=== PATIENT | female | born 1960 | race Caucasian/White ===

== ENCOUNTER 2025-01-26 15:48 | Outpatient (AMB) | payer OTHER, SELFPAY ==
--- NOTE | 2025-01-26 16:06 | HO.NEPHOV_ITS ---
Vital Signs 01/26/25 16:10 Height 5 ft 2 in Weight 179 lb BMI 32.7 BP 110/70 Blood Pressure Location Lt brachial Position Sitting Pulse 61 Pulse Source Pulse Oximeter Pulse Oximetry (%) 99 Oxygen Delivery Method Room Air Intake Visit Reasons: ENP: HTN Drapery Estimator Required: No Accompanied by: Self / Same As Patient Allergies No Known Allergies Allergy (Verified 01/26/25 16:10) HPI Comments Details: I had the privilege of seeing Analia in consultation for labile blood pressure. She has hypertension for close to 15 years. She always had been on lisinopril/HCTZ dose of which was increased to 20/12.5 mg daily when her BP started going up. Later she needed addition of Amlodipine 2.5 mg (since 2 months) which is currently keeping her BP at goal. She does not takes excess sodium in diet and has not had any significant weight gain recently. She has no H/O uncontrolled thyroid disorders, hypokalemia, VIDAL, CAD,CVA,CHF,KHUSHBOO, carotid stenosis or PAD. Her renal functions are normal. She had Doppler of renal arteries and is due to have 24 hour ABPM. She has strong family H/O hypertension. [facility] Medical History (Updated 01/26/25 @ 20:50 by Kb Duran MD) HLD (hyperlipidemia) Hypertension Surgical History History of spinal surgery Family History (Updated 01/26/25 @ 16:08 by Dee Gongora MA) Mother Breast cancer Diabetes mellitus Hypertension Heart valve replaced Father Diabetes mellitus Hypertension Social History (Updated 01/26/25 @ 16:09 by Dee Gongora MA) Alcohol intake: current Alcohol intake frequency: holidays/special occasions only Patient Tobacco Use Status: Never used Tobacco Review of Systems Const All systems reviewed & are unremarkable except as noted in HPI and below Physical Exam Vital Signs: Last Vital Signs Pulse 61 01/26/25 16:10 BP 110/70 01/26/25 16:10 Pulse Ox 99 01/26/25 16:10 Oxygen Delivery Method Room Air 01/26/25 16:10 BMI result Body Mass Index 32.7 Const General: comfortable and no acute distress Orientation/consciousness: patient oriented x3 HEENT Head: Yes normocephalic Mouth: Normal oral and palatal mucosa present Eyes EOM: EOMs intact bilaterally Neck Neck: Yes supple Resp Auscultation: clear to auscultation bilaterally Cardio Jugular venous distension: no JVD Rate: regular rate Heart sounds: Murmur heart sound present GI Palpation (GI): Soft to palpation Auscultation: normal bowel sounds General: Yes no CVA tenderness Back/Spine/Pelvis Back: no CVA tenderness Skin General skin exam: no rashes or lesions noted Neuro General: patient oriented x3 and moves all extremities Extrem General: Yes no pedal edema Assessment & Plan Assessment & Plan (1) Hypertension: Code(s): I10 - Essential (primary) hypertension Category: Medical Qualifiers: Hypertension type: primary hypertension Qualified Code(s): I10 - Essential (primary) hypertension Plan H/O primary hypertension currently needing more medications and doses Renal functions, serum potassium, thyroid functions normal; No VIDAL Will benefit from low sodium diet and significant weight loss C/W current dose of lisinopril/HCTZ and Amlodipine Had Doppler of renal arteries and going to have 24 hour ABPM Maintain good hydration and mimimize NSAID's ( has strong family H/O HTN); NO H/O LVH/retinopathy/proteinuria All these have been discussed; Answered all questions & F/U given Coding Level of Care Code New Pt Level 4 (95552) Diagnoses Primary hypertension I10 Hypertension type: primary hypertension
[2025-01-26 16:10] VITALS: BP 110/70; PULSE 61; O2SAT 99; BMI 32.7
--- OUTSIDE RECORDS SUMMARY | 2025-01-26 20:41 | XMS_ITS | Data Portability ---
Author Organization [facility] - [facility], Allergy Address [address] [address] Care Team Providers Care Airborne Electronics Analyst Name Role Phone ISAAK LEMONS Primary Care Provider ISAAK LEMONS Referring Provider Assessment Encounter Date Assessment Date Assessment LastModified by Organization Details LastModified Time 10/12/2024 10/12/2024 Patient with episodic positionally induced vertigo. Wolverine-Hallpike was positive for vertigo and rotary nystagmus with the head to the right. We discussed that the patient s pattern of symptoms and physical exam findings are most consistent with benign paroxysmal positional vertigo (BPPV). The pathophysiology of BPPV was discussed in detail. Patient was provided with a referral to [facility] for Joe maneuvers and vestibular therapy.We discussed the fact that treatment of BPPV can require anywhere from 1 to 6 treatments for successful results, and has approximately 95% success rate in eliminating symptoms. BPPV can recur and if the classic positionally induced symptoms do recur, patient can call for further referrals. [email or web address] Not available 10/12/2024 10:22:07 Plan of Treatment Reminders Order Date Submit Date Provider Last Modified By Organization Details Last Modified Time Details Appointments None recorded. Lab None recorded. [facility]erral vest[facility] [address], [place], [address], 16:02:23 Procedures None recorded. Surgeries None recorded. Imaging None recorded. Medication Orders None recorded. Patient TargetsNo targets recorded. Patient InstructionsNo instructions recorded. Reason for Referral Vestibular Therapy Referral for Benign paroxysmal positional vertigo Referring Physician: Brynn Romeo, Otolaryngology, Encounter Date: 10/12/2024 Results Created Date Observation Date Name Description Value Unit Range Abnormal Flag Note LastModifiedBy Organization Detail LastModifiedTime 10/09/19 25 audio gram No observ ation record ed. [email or web address] Not Available 09/11 10:42:26 10/09/19 25 audio gram No observ ation record ed. BARCODE Not Available 2024 14:50:58 10/13/19 25 audio gram No observ ation record ed. BARCODE Not Available 2024 11:19:36 Result Notes None recorded. Problems Name Problem SNOMED Code Status Onset Date Resolution Date Notes Provider Name and Address Organization Details Recorded Time Benign paroxysmal positional vertigo 372602527 Active 025 BRYNN ROMEO PA-C 100 [facility],[address], [address], [facility] 10:16:03 Problem Notes None recorded. Procedures Surgical History Date Name Laterality Status Provider Name and Address Organization Details Recorded Time 10/08/2024 Comp Audio with Tymps - 32859 & 25806 completed ROSY MANE [address], [address], [facility] 10/08/2024 10:29:10 Imaging Results None recorded. Procedure Notes None recorded. Medical Equipment None Reported. Medications Name Sig Start Date Stop Date Status Note LastModified by Organization Details LastModified Time lisinopril 10 mg-hydrochloro thiazide 12.5 mg tablet TAKE 1 TABLET BY MOUTH EVERY DAY active Not Available Not Available No t Available amoxicillin 875 mg-potassium clavulanate 125 mg tablet TAKE 1 TABLET BY MOUTH EVERY 12 HOURS FOR 10 DAYS active Not Available Not Available No t Available rosuvastatin 10 mg tablet TAKE 1 TABLET BY MOUTH EVERY DAY FOR 30 DAYS active Not Available Not Available No t Available Vitals Date Recorded Body height Body mass index (BMI) Body weight Provider Name and Address Organization Details Last Updated DateTime 10/12/2024 157.48 cm 31.1 kg/m2 19480.7 g Niya Carrillo [facility] 10/12/2024 09:42:03 Social History None recorded. Functional Status None recorded. Mental Status None recorded. Family History Nothing Reported. Medical History No medical history recorded. Gynecological HistoryNo gynecological history recorded. Obstetrics History GPAL:G 0 P 0 0 0 0 Past Encounters Encounter ID Performer Location Encounter Start Date Encounter Closed Date Diagnosis/Indication Diagnosis SNOMED-CT Code Diagnosis ICD10 Code Diagnosis IMO Codes Diagnosis Note [id number] BRYNN ROMEO PA-C [facility] [address] [address] 10/12/2024 09:18:06 10/12/2024 10:11:25 Benign paroxysmal positional vertigo 405359106 H81.11 [id number] ROSY MANE [facility] [address] [address] 10/08/2024 10:22:25 10/08/2024 10:45:58 Dizziness and giddiness 587694006 R42 00560 Right Ear:Normal hearing with excellent speech discrimina tion.Type A tympanogra m.Left Ear:Normal hearing with excellent speech discrimina tion.Type A tympanogra m. Health Concerns Section Related Observation LastModified by Organization Detai ls LastModified Time None Recorded Concern Status LastModified by Organization Details LastModified Time None Recorded Advance Directives Directive None Recorded Payers Insurance Date Sequence Insurance Name Policy Number Policy Isbell Covered Member ID Isbell Member ID Guarantor Name 10/11/[address] [place] [address] [id number] Analia Ovalle [id number] Analia Ovalle Notes Date Note Type Note Provider Name and Address Organization Details Recorded Time 10/12/2024 text/html ROS as noted in the HPI 64yo female presents for evaluation of disequilibrium. Patient defines the sensation as room-spinning dizziness lasting less than one minute. This started months ago. Frequency is 3-4 times weekly, and occurred twice while driving in the past two weeks. Triggered by laying in bed and standing up. Orthostatic hypotension ruled out by PCP last week. History of vertigo 15 years ago, associated with sinus infection at the time. Denies nasal symptoms and smell is intact. Occasional mental fog. Denies associated chest pain, heart palpitations, facial or extremity weakness, speech changes, or light sensitivity. Audio 10/08/24 was normal. MRI Brain at [address] ordered by pcp, results pending. BRYNN ROMEO PA-C [address] [place] [address], [place], [address], [facility] - [facility] 10/12/2024 10:22:32 OBGyn Episode No OBEpisode recorded.
--- OUTSIDE RECORDS SUMMARY | 2025-01-26 20:41 | XMS_ITS | Clinical Summary ---
Author Organization [facility] Address [address] [place] [address] Phone Care Team Providers Care Machine Sneller Name Role Phone Isaak Lemons MD Primary Care Provider [phone] Family History Medical History Relation Name Comments Breast cancer Mother Breast cancer Paternal Grandmother Relation Name Status Comments Mother Paternal Grandmother Social History Tobacco Use Types Packs/Day Years Used Date Smoking Tobacco: Never Assessed Comments No Sex and Gender Information Value Date Recorded Sex Assigned at Female 02/26/2024 1:47 PM EST Legal Sex Female 11:21 PM EST Gender Identity Female 02/26/2024 1:47 PM EST Sexual Orientation Straight 02/26/2024 1: 47 PM EST Obstetrics History Para Term AB IAB SAB Ectopic Multiple Livin g Live Births 2 Last Filed Vital Signs Vital Sign Reading Time Taken Comments Blood Pressure - - Pulse - - Temperature - - Respiratory Rate - - Oxygen Saturation - - Inhaled Oxygen Concentration - - Weight 77.1 kg (170 lb) 03/08/2024 7:57 AM EST Height 157.5 cm (5' 2 ) 03/08/2024 7:57 AM EST Body Mass Index 31.09 03/08/2024 7:57 AM EST Plan of Treatment Health Maintenance Due Date Last Done Comments Colorectal Cancer Screening: Colonoscopy 1960 DTaP,Tdap,and Td Vaccines (1 - Tdap) 05/05/1978 Cervical Cancer Screening: Pap Smear 05/05/1980 Pneumococcal Vaccine: 50+ Years (1 of 1 - PCV) 05/05/2009 Zoster Vaccines (1 of 2) 05/05/2009 Hepatitis C Screening 01/13/2022 Social Influencers of Health Screening 01/13/2022 Depression Screening 02/11/2024 Falls Risk Assessment 05/05/2024 COVID-19 Vaccine (2024- season) 2024 Influenza Vaccine (#1) 2024 Breast Cancer Screening 03/08/2026 03/08/19 25, 07/01/2022, 05/16/2021, Additional history exists Osteoporosis Screening (Bone Density Screening) 07/01/2032 07/01/2022 RSV Immunization Adult Patients (1 - 1-dose 75+ series) 05/05/2034 HIB Vaccines Aged Out No longer eligi ble based on patient's age to complete this topic HPV Vaccines Aged Out No longer eligi ble based on patient's age to complete this topic Hepatitis A Vaccines Aged Out No long er eligible based on patient's age to complete this topic Hepatitis B Vaccines Aged Out No long er eligible based on patient's age to complete this topic IPV Vaccines Aged Out No longer eligi ble based on patient's age to complete this topic MMR Vaccines Aged Out No longer eligi ble based on patient's age to complete this topic Meningococcal ACWY Vaccine Aged Out N o longer eligible based on patient's age to complete this topic Meningococcal B Vaccine Aged Out No l onger eligible based on patient's age to complete this topic RSV Immunization Patients Under 20 months Aged Out No longer eligible based on patient's age to complete this topic Varicella Vaccines Aged Out No longer eligible based on patient's age to complete this topic Procedures Procedure Name Priority Date/Time Associated Diagnosis Comments MG MAMMO DIGITAL SCREENING W MICHAEL BILAT Routine 03/08/2024 8:05 AM EST Encounter for screening mammogram for breast cancer SANDRO DEXA AXIAL SKELETON Routine 07/01/2022 10:18 AM EDT Asymptomatic menopausal state from Last 3 Months or Most Recently Relevant to Health Maintenance Results * MG Mammo Digital Screening w Michael bilat (03/08/2024 8:05 AM EST) Anatomical Region Laterality Modality Breast Bilateral Mammography 03/08/2024 8:13 AM EST Impressions 03/08/2024 8:18 AM EST No mammographic evidence of malignancy. A negative mammogram in the presence of a clinically suspicious palpable abnormality does not preclude the possibility of malignancy or alter the indications for biopsy. PQRI CPT II 3341F Code 17253, 70892 PQRI 225 CPT II 7025F TISSUE DENSITY: There are scattered areas of fibroglandular density. (BI-RADS category B) IMPRESSION: Benign. BI-RADS CATEGORY: 1 - NEGATIVE RECOMMENDATION: Screening bilateral mammogram is recommended in 1 year. Mammo Location: [facility], [facility], [address] [place] [id number] -------- FINAL REPORT -------- Dictated By: Ralph Johnson Dictated Date: 03/08/2024 08:13 ET Assigned Physician: Ralph Johnson Reviewed and Electronically Signed By: Ralph Johnson Signed Date: 03/08/2024 08:18 ET Workstation ID: [id number] Transcribed By: Self Edit Transcribed Date: 03/08/2024 08:13 ET Narrative 03/08/2024 8:18 AM EST CLINICAL: The patient is a 63 years Female presenting for routine screening mammography. The patient has a family history of breast cancer involving her mother at age 60. COMPARISON: Most recently 07/01/2022 and most remotely 01/05/2018. TECHNIQUE: Full-field digital mammography of the breasts bilaterally consisting of tomosynthesis in MLO and CC projection is performed in the [employer] 2000-D unit. Computer aided detection utilizing the iCAD system was utilized. FINDINGS: The breasts are again seen to be composed of a combination of fatty and fibroglandular elements. There is no cluster of microcalcifications, mass, or area of architectural distortion. There is no skin thickening or nipple retraction. Procedure Note Ralph Johnson MD - 03/08/2024 CLINICAL: The patient is a 63 years Female presenting for routinescreening mammography. The patient has a family history of breast cancerinvolving her mother at age 60. COMPARISON: Most recently 07/01/2022 and most remotely 01/05/2018. TECHNIQUE: Full-field digital mammography of the breasts bilaterallyconsisting of tomosynthesis in MLO and CC projection is performed in the[employer] 2000-D unit. Computer aided detection utilizing the [employer] Mediaystem was utilized. FINDINGS: The breasts are again seen to be composed of a combination offatty and fibroglandular elements. There is no cluster ofmicrocalcifications, mass, or area of architectural distortion. There isno skin thickening or nipple retraction. IMPRESSION: No mammographic evidence of malignancy. A negative mammogram in the presence of a clinically suspicious palpableabnormality does not preclude the possibility of malignancy or alter theindications for biopsy. PQRI CPT II 3341F Code 92667, 82403 PQRI 225 CPT II 7025F TISSUE DENSITY: There are scattered areas of fibroglandular density.(BI-RADS category B) IMPRESSION: Benign. BI-RADS CATEGORY: 1 - NEGATIVE RECOMMENDATION: Screening bilateral mammogram is recommended in 1 year. Mammo Location: [facility], [facility], [address] [place] [address] -------- FINAL REPORT -------- Dictated By: Ralph Johnson Dictated Date: 03/08/2024 08:13 ET Assigned Physician: Ralph Johnson Reviewed and Electronically Signed By: Ralph Johnson Signed Date: 03/08/2024 08:18 ET Workstation ID: [id number] Transcribed By: Self Edit Transcribed Date: 03/08/2024 08:13 ET Isaak Lemons MD IMG BI PROCEDURES Final Resu lt * SANDRO DEXA AXIAL SKELETON (07/01/2022 10:18 AM EDT) Anatomical Region Laterality Modality Mammography 07/01/2022 7:26 AM EDT Narrative 07/01/2022 10:18 AM EDT [facility] Diagnostic Imaging Department [address] [place] [address] [id number] Patient: SEAN OVALLE./Age/Sex: 1960 - - F Unit#: [id number] Location/Status: SPDIMAM/REG CLI Mnemonic[facility] Ordering Physician: ISAAK LEMONS MD Sandro Dexa Axial Skeleton - 07/01/22827 HISTORY: The patient is a 62-year-old postmenopausal female with clinical concern for metabolic bone disease. FINDINGS: Dual energy x-ray absorptiometry of the lumbar spine and femurs is performed. The mean bone mineral density at L1-L4 is 1.248 gm/cm2 which is 106% of that of young normals and 120% of that of age matched controls. This yields a T-score of 0.6 and a Z-score of 1.7 and there is therefore no evidence of osteoporosis or osteopenia here. The mean bone mineral density of the femurs bilaterally is 1.023 gm/cm2 which is 102% of that of young normals and 114% of that of age matched controls. This yields a T-score of 0.1 and a Z-score of 1.0 and there is therefore no evidence of osteoporosis or osteopenia here. IMPRESSION: 1. There is no evidence of osteoporosis or osteopenia. There has been a decrease of 8.6% in bone mineral density in the lumbar spine since the prior examination of 03/16/2015. There has been a decrease of 6.3% in bone mineral density in the right femur and a decrease of 7.5% in bone mineral density in the left femur. 2. FRAX analysis yields a 10-year probability of major osteoporotic fracture of 6.6% and a 10-year probability of hip fracture of 0.2%. Code 67415 Dictating Physician: RALPH JOHNSON MD Electronically Signed by: RALPH JOHNSON MD Dic Date/Time: 07/01/22 1017 Sign date/Time: 07/01/22 1018 Procedure Note Ralph Johnson MD - 02/02/2024 [facility] Diagnostic Imaging Department [address] [place] [id number] Patient: SEAN OVALLE/Age/Sex: 1960 - 62 - F Unit#: [id number] Location/Status: SPDIMAM/REG CLI Mnemonic[facility] Ordering Physician: ISAAK LEMONS MD Sandro Dexa Axial Skeleton - 07/01/22827 HISTORY: The patient is a 62-year-old postmenopausal female withclinical concern for metabolic bone disease. FINDINGS: Dual energy x-ray absorptiometry of the lumbar spine and femursis performed. The mean bone mineral density at L1-L4 is 1.248 gm/cm2 which is106% of that of young normals and 120% of that of age matched controls. Thisyields a T-score of 0.6 and a Z-score of 1.7 and there is therefore no evidenceof osteoporosis or osteopenia here. The mean bone mineral density of the femurs bilaterally is 1.023 gm/vs2jvdtw is 102% of that of young normals and 114% of that of age matched controls.This yields a T-score of 0.1 and a Z-score of 1.0 and there is therefore noevidence of osteoporosis or osteopenia here. IMPRESSION: 1. There is no evidence of osteoporosis or osteopenia. There has been a decrease of 8.6% in bone mineral density in the lumbar spine since theprior examination of 03/16/2015. There has been a decrease of 6.3% in bonemineral density in the right femur and a decrease of 7.5% in bone mineral densityin the left femur. 2. FRAX analysis yields a 10-year probability of major osteoporoticfracture of 6.6% and a 10-year probability of hip fracture of 0.2%. Code 94558 Dictating Physician: RALPH JOHNSON MD Electronically Signed by: RALPH JOHNSON MD Dic Date/Time: 07/01/22 1017 Sign date/Time: 07/01/22 1018 Isaak Lemons MD IMG BI PROCEDURES Final Resu lt from Last 3 Months or Most Recently Relevant to Health Maintenance Insurance [facility] Care Teams Machine Sneller Relationship Specialty Start Date End Date Isaak Lemons MD [address] [place] [id number] PCP - General Internal Medicine 02/26/24
--- OUTSIDE RECORDS SUMMARY | 2025-01-26 20:41 | XMS_ITS | Patient Health Record ---
Author Organization [facility] Address [address] [place] [address] Care Team Providers Care Cap Maker Name Role Phone ISAAK LEMONS Primary Care Provider Allergies Allergen (clinical drug ingredient) Drug/Non Drug Allergy documented on EMR Reaction Allergy Type Onset Date Status NONE (uncoded) Unknown Allergy Activ e Reason For Referral Reason 10/07/24 W APPT Refe rral ear nose and throat surgeons at [facility] Diagnosis 1 Recurrent vertigo (R 42) Referral Organization [facility] Referring Provider First Name ISAAK Referring Provider Last Name VESTA Referring Provider Speciality Internal M edicine Referred Organization [facility] (1) Referred Address [address] [place],[address], Referred Provider Specialty Otology, Lar yngology, Rhinology General Notes Lexi GRESHAM P Admin 08:34:47 AM > faxed medical referral, note and most recent labs to [facility] at [phone] Referral Priority Routine Reason 11/15/24 w appt Cons ultation referral with Dr. Pretty from nephrology for difficult to manage hypertension Diagnosis 1 Essential (primary) hypertension (I10) Referral Organization [facility] Referring Provider First Name ISAAK Referring Provider Last Name VESTA Referring Provider Speciality Internal M edicine Referred Provider EDGARDO WARREN Referred Provider Specialty Nephrology General Notes MPLexi P Admin 07/2024 03:00:48 PM > faxed medical referral note and most recent labs to [facility] at [phone]>no referral required Referral Priority Routine Medications Medication SIG (Take, Route, Frequency, Duration) Notes Start Date End Date Status amLODIPine Besylate 2.5 MG Tablet 1 tablet Orally Once a day; Duration: 30 day(s) 11/15/2024 Active Rosuvastatin Calcium 10 MG Tablet TAKE 1 TABLET BY MOUTH EVERY DAY FOR 30 DAYS; Duration: 90 Active Lisinopril 20 MG Tablet 1 tablet Orally Once a day; Duration: 90 days 11/11/2024 Active Lisinopril-hydroCHLOROthiaz lisha 20-12.5 MG Tablet TAKE 1 TABLET BY MOUTH EVERY DAY FOR 90 DAYS Orally Once a day; Duration: 90 days Active Social History Tobacco Use: Social History Observation Description Date Details (start date - stop date) Never Smoker NA - NA Sex Assigned At : Social History Observation Description Sex Assigned At Female Social History Tobacco Use: Social Info Question Answer Notes Smoking Are you a: never smoker Additional Details Category Social Info Options Details General 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 alcohol use: yes 2 drinks/week drug use: no Coffee/Tea/Soda: yes Marital Status Living with smokers in household no Drugs no Section Notes: former smoked for 1 yr former smoked for 1 yr former smoked for 1 yr former smoked for 1 yr former smoked for 1 yr Problems Problem Type SNOMED Code ICD Code Onset Dates Problem Status W/U Status Risk Notes Problem Essential hypertension (66505991) Essential (primary) hypertension (I10) Active confirmed Problem Disorder of lipoprotein storage and metabolism (disorder) (235898983) Disorder of lipoprotein metabolism, unspecified (E78.9) Active confirmed Problem Spinal stenosis of lumbosacral region (284786563) Spinal stenosis of lumbosacral region (M48.07) Active confirmed Problem Lumbar radiculopathy (395699635) Lumbar radiculopathy, right (M54.16) Active confirmed Problem Heart disease (11668339) Mild diastolic dysfunction (I51.9) Active confirmed Problem Grade I diastolic dysfunction (I51.89) Active confirmed Vital Signs Blood pressure diastolic 96 mm Hg 11/15/2024 Height 66 in 11/15/2024 Blood pressure systolic left arm 152 mm Hg 11/15/2024 Weight 169 lbs 11/15/2024 BMI 27.27 kg/m2 11/15/2024 Encounters Encounter Location Date Provider Diagnosis [facility] [address] [place] [address] 02/26/2024 ISAAK LEMONS Essential (primary) hypertension I10 ; Disorder of lipoprotein metabolism, unspecified E78.9 ; Lumbar radiculopathy, right M54.16 ; Heart murmur, systolic R01.1 ; Spinal stenosis of lumbosacral region M48.07 and Grade I diastolic dysfunction I51.89 [place] [phone] 10/06/2024 ISAAK LEMONS Essential (primary) hypertension I10 ; Disorder of lipoprotein metabolism, unspecified E78.9 ; Grade I diastolic dysfunction I51.89 ; Encounter for screening mammogram for malignant neoplasm of breast Z12.31 ; Colon cancer screening Z12.11 ; Recurrent vertigo R42 and Deficiency of other specified B group vitamins E53.8 [place] [phone] 11/15/2024 ISAAK LEMONS Essential (primary) hypertension I10 ; Disorder of lipoprotein metabolism, unspecified E78.9 ; Grade I diastolic dysfunction I51.89 and Heart murmur, systolic R01.1 [facility] [address] [place], [place] [id number] 04/26/2024 ISAAK LEMONS [place] [phone] 10/13/2024 ISAAK LEMONS [place] [phone] 11/01/2024 ISAAK LEMONS [place] [phone] 11/11/2024 ISAAK LEMONS [place] [phone] 11/15/2024 ISAAK LEMONS [place] [phone] 11/22/2024 ISAAK LEMONS [address] [address] 01/25/2025 ISAAK [place] [phone] 10/05/2024 ISAAK LEMONS Assessments Encounter Date Diagnosis (ICD Code) Assessment Notes Treatment Notes Treatment Clinical Notes Section Notes 02/26/2024 Essential (primary) hypertension (ICD-10 - I10) Blood pressure well-controlled. No change in therapy. Weight management. Exercise diet no added salt diet. Check basic metabolic profile follow-up in 6 months 02/26/2024 Disorder of lipoprotein metabolism, unspecified (ICD-10 - E78.9) Continue statin therapy. Low-fat diet. Mediterranean diet recommended. Check lipid profile total cholesterol goal is 200 LDL less than 100 optimally 10/06/2024 Essential (primary) hypertension (ICD-10 - I10) Blood pressure stable well-controlled no change in therapy no added salt diet walk 30 minutes a day exercise etc. 10/06/2024 Disorder of lipoprotein metabolism, unspecified (ICD-10 - E78.9) Continue statin therapy check lipid profile LDL goal less than 100 total cholesterol less than 200 11/15/2024 Essential (primary) hypertension (ICD-10 - I10) Suboptimal control although recheck pressure was 134/84. Will add low-dose amlodipine 2.5 mg a day and we will do a 24-hour blood pressure monitor also get renal consult to do a renal artery stenosis evaluation 11/15/2024 Disorder of lipoprotein metabolism, unspecified (ICD-10 - E78.9) Total cholesterol 163 LDL 83 therefore continue statin therapy recheck 6 months 10/06/2024 Grade I diastolic dysfunction (ICD-10 - I51.89) Stable blood pressure well-controlled follow-up echo at next visit 11/15/2024 Grade I diastolic dysfunction (ICD-10 - I51.89) Will follow cardiac echo as no shortness of breath fluid retention etc. 02/26/2024 Lumbar radiculopathy, right (ICD-10 - M54.16) Stable doing well status post synovial cyst excision with significant improvement in all her symptoms. Spinal stenosis at the present time is not bothering her. 02/26/2024 Heart murmur, systolic (ICD-10 - R01.1) 10/06/2024 Encounter for screening mammogram for malignant neoplasm of breast (ICD-10 - Z12.31) Mammogram up-to-date recheck in the winter 11/15/2024 Heart murmur, systolic (ICD-10 - R01.1) With prominence of the heart murmur and no valvular issues noted on echo a year ago when I rechecked an echo to make sure there is no interval change 02/26/2024 Spinal stenosis of lumbosacral region (ICD-10 - M48.07) As above physical exam neurologically intact normal. Moderate to severe spinal stenosis based on MRI but no symptoms at the present time follow-up with neurosurgery as needed 10/06/2024 Colon cancer screening (ICD-10 - Z12.11) Colon cancer screening 2021 recheck 10 years 2031 she is due 02/26/2024 Grade I diastolic dysfunction (ICD-10 - I51.89) Reviewed echo with patient. Overall looks good normal ejection fraction normal valvular function grade 1 diastolic dysfunction will monitor recheck in 1 to 2 years patient instructed to call with any changes for shortness of breath edema etc. goes 10/06/2024 Recurrent vertigo (ICD-10 - R42) With recurrent vertigo unclear the some reasoning for the symptoms. Not by history clear that it is a benign paroxysmal positional vertigo. I was really sent labyrinthitis no viral infections has been going on for months. Will check an MRI to rule out [employer] pathology also attention internal auditory canal. Will check full labs and get consultation with ear nose and throat 10/06/2024 Deficiency of other specified B group vitamins (ICD-10 - E53.8) Plan Of Treatment Pending Test Test Name Order Date 24 hour ambulatory blood pressure monito r 11/15/2024 Echocardiogram 11/15/2024 Future Test Test Name Order Date Lipid Panel-[id number] 02/22/2024 [id number] 02/22/2024 Next Appt Details Provider Name:MAHOGANY Gruber, 02/07/2025 09:45:00 AM, [address] [place] [address], [phone], Provider Name:ISAAK VÁZQUEZ, 05/04/2025 02:15:00 PM, [address] [place] [address], [phone], Insurance Providers Payer Name Payer Address Payer Phone Subscriber Number Group Number Insured Name Patient Relationship to Insured Coverage Start Date Coverage End Date [facility] [address] [place] [id number] SEAN MUSA Self - patient is the insured 3 Medical (General) History Medical History History ICD Code HTN Vaccination status COVID 4 s hots. Flu shot q. year. Tdap 2019. Shingrix negative. Bone density June 2022 normal Mammogram June 2022 Pertinent lab data May creatinine 0.9. LFTs normal. Cholesterol 246 triglyceride 85 HDL 62 LDL 167. TSH 2.1. ASCVD risk 4.1%. A1c 5.[address] August [address] Carlos colón k [address] Philippe Abraham Hyperlipidemia Cardiac echo August 2023 mild diastolic gr shelbi 1 dysfunction otherwise negative MRI lumbar spine August 2023 m oderate L4-L5 spinal stenosis and synovial cyst resection Neurosurgery consultation Dr. Nadja French August 2023 Mammogram February 2024 negative MRI of the brain September 2024 negative Cardiac echo 2023 normal EF grade 1 watson tolic dysfunction normal valves Surgical History Surgery Date(Month/Year) spine surgery cyst removed 10/03
== END 2025-01-26 16:43 | disposition home or self-care (01) ==
LOC: HO.HKA 15:50
PROVIDERS: PCP Internal Medicine; Referring Provider Internal Medicine; Visit Provider Internal Medicine Nephrology
DX: I10 Essential (primary) hypertension (principal)
CPT/HCPCS: 99204